=== PATIENT | female | born 1960 | race American Indian/Alaskan Native ===

== ENCOUNTER 2017-04-18 11:40 | Outpatient (CLI) | payer MEDICAID ==
[2017-04-18 13:13] LABS: ISTAT Base Excess 2; ISTAT DEVICE 0; ISTAT HCO3 26.1; ISTAT PCO2 40.5 (35-45); ISTAT PH 7.417 (7.35-7.45); ISTAT PO2 84 (80-105); ISTAT SO2 96; ISTAT TCO2 27
== END 2017-04-18 11:41 | disposition home or self-care (01) ==
LOC: LAB 11:40
PROVIDERS: ATTEND Internal Medicine
DX: J45.20 Mild intermittent asthma, uncomplicated (principal); I27.0 Primary pulmonary hypertension
CPT/HCPCS: 82803

== ENCOUNTER 2017-11-23 15:09 | Outpatient (CLI) | payer MEDICAID ==
--- NOTE | 2017-11-23 15:39 | Mammography Report ---
BONE DENSITY STUDY: Hysterectomy; screening for osteoporosis. DEFINITIONS: BMD = Bone Mineral Density T-score = BMD related to mean peak bone mass of young adult (mean expressed in Standard Deviation) Z-score = Age matched BMD expressed in SD World Health Organization (WHO) Diagnostic Criteria Normal T-score > -1 SD Osteopenia T-score between -1 and -2.4 SD Osteoporosis T-score -2.5 SD or below FINDINGS: The weighted average BMD of lumbar spine L1-L4 is 1.454 with a T-score of 3.7. The weighted average BMD of the left hip is 1.338 with a T-score of 3.2. IMPRESSION: The patient's average T-score is diagnostic for normal bone density and low relative risk for fracture. NOTE: BMD is not the only risk factor for fracture; also consider factors such as the patient's age, risk of falling, previous osteoporotic fracture, family history of osteoporotic fractures, current smoker, and low body weight. Garza's triangle is a region of interest in femur, predominantly of trabecular bone. It is not a true anatomic site, and [facility] does not recommend its use clinically.
== END 2017-11-23 15:10 | disposition home or self-care (01) ==
LOC: MAMMO 15:09
PROVIDERS: ATTEND Internal Medicine
DX: Z13.820 Encounter for screening for osteoporosis (principal); Z90.710 Acquired absence of both cervix and uterus
CPT/HCPCS: 77080